=== PATIENT | male | born 1960 | race Caucasian/White ===

== ENCOUNTER 2017-01-03 20:16 | Emergency (ER) | payer OTHER ==
[~2017-01-03] VITALS: Ht 172.7 cm; Wt 86.2 kg
[2017-01-03] MEDS ORDERED: PRAZ1CAP PO (20:30)
[2017-01-03] MEDS ORDERED: POLYSPORIN TOPICAL OINTMENT 15GM As Ordered ONE (22:48)
--- NOTE | 2017-01-03 23:50 | REPUSA ---
CT of the cervical spine Clinical history: Trauma. Technique: Multiple axial CT images were obtained through the cervical spine without administration o f contrast. Coronal and sagittal 3-D reconstructed images were also obtained. Comparison: None. Findings: The cervical vertebral bodies are in satisfactory positioning and alignment. No fractures or dislocat ions are demonstrated. The odontoid process is intact. Intervertebral disc spaces are . Moderately na rrowed at C3/C4, C5/C6, and C6/C7. Small disc osteophyte complexes are noted at each of these levels. This causes mild bilateral neural foraminal narrowing. There is no evidence of facet subluxation. Mo derate facet arthropathy is noted, worse on the left, with prominent osteophytes.The cervical cranial junction is intact. The cervical spinal canal demonstrates normal caliber and contour without eviden ce of spinal stenosis. The surrounding soft tissues are within normal limits. Impression: 1. No acute fracture or traumatic injury. 2. Degenerative disc disease with disc osteophyte complexes at C3/C4, C5/C6, and C6/C7. Mild bilater al neural foraminal narrowing is noted at each of these levels. 3. Mild bilateral facet arthropathy, worse on the left.
[2017-01-03 23:59] VITALS: BP 172/91
[2017-01-04] MEDS ORDERED: VALI5TAB PO (00:10)
[2017-01-04] MEDS ORDERED: NAPR500T PO (00:10)
[2017-01-04] MEDS ORDERED: diazePAM 5 MG TAB PO ONE (00:15)
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
== END 2017-01-04 00:18 | disposition home or self-care (01) ==
LOC: M ED 22:19
DX: S80.812A Abrasion, left lower leg, initial encounter (principal); S93.401A Sprain of unspecified ligament of right ankle, initial encounter; V27.0XXA Motorcycle driver injured in collision with fixed or stationary object in nontraffic accident, initial encounter; Y92.410 Unspecified street and highway as the place of occurrence of the external cause; Y93.89 Activity, other specified; Y99.9 Unspecified external cause status; M50.023 Cervical disc disorder at C6-C7 level with myelopathy

== ENCOUNTER → 2017-07-06 | Outpatient (CLI) | payer OTHER ==
[~2017-07-06] MED LIST: NAPR500T PO; PRAZ1CAP PO; VALI5TAB PO
[2017-07-07 14:10] LABS: PSA TOTAL 3.1 ng/mL (0.0-4.0)
== END ==
LOC: M SMT 10:45
PROVIDERS: ATTEND Urology
DX: R97.20 Elevated prostate specific antigen [PSA] (principal)
CPT/HCPCS: 36415; 51798; 81001; 84154; 87086; G0463

== ENCOUNTER → 2017-08-01 | Day surgery (SDC) | payer OTHER ==
[~2017-08-01] VITALS: Ht 172.7 cm; Wt 87.1 kg
[~2017-08-01] MED LIST changes: +NS 1,000 ML IV ONE; +PROPOFOL 200 MG/20 ML VIAL As Ordered ONE
--- NOTE | 2017-08-01 10:51 | ROOR ---
Patient Name: Satya Plata Procedure Date: 08/01/2017 10:29 AM Date of : 1960 Age: 56 Room: [facility] Gender: Male Note Status: Finalized Procedure: Colonoscopy Indications: Screening for colorectal malignant neoplasm Providers: DO Gino Kang MD: EDEL HOLLINGSWORTH MD Requesting Provider: Medicines: Propofol per Anesthesia Complications: No immediate complications. Procedure: Pre-Anesthesia Assessment: - Prior to the procedure, a History and Physical was performed, and patient medications and allergies were reviewed. The patient is competent. The risks and benefits of the procedure and the sedation options and risks were discussed with the patient. All questions were answered and informed consent was obtained. Patient identification and proposed procedure were verified by the physician, the nurse, the anesthesiologist and the identification technician in the endoscopy suite. Mental Status Examination: alert and oriented. Airway Examination: normal oropharyngeal airway and neck mobility. Respiratory Examination: clear to auscultation. CV Examination: normal. Prophylactic Antibiotics: The patient does not require prophylactic antibiotics. Prior Anticoagulants: The patient has taken no previous anticoagulant or antiplatelet agents. ASA Grade Assessment: II - A patient with mild systemic disease. After reviewing the risks and benefits, the patient was deemed in satisfactory condition to undergo the procedure. The anesthesia plan was to use monitored anesthesia care (MAC). Immediately prior to administration of medications, the patient was re-assessed for adequacy to receive sedatives. The heart rate, respiratory rate, oxygen saturations, blood pressure, adequacy of pulmonary ventilation, and response to care were monitored throughout the procedure. The physical status of the patient was re-assessed after the procedure. The Colonoscope was introduced through the anus and advanced to the cecum, identified by appendiceal orifice and ileocecal valve. The colonoscopy was performed without difficulty. The patient tolerated the procedure well. Findings: A less than 5 mm polyp was found in the hepatic flexure. The polyp was hyperplastic. The polyp was removed with a cold biopsy forceps. Resection and retrieval were complete. Estimated blood loss was minimal. Two semi-pedunculated polyps were found in the sigmoid colon and transverse colon. The polyps were 5 to 8 mm in size. These polyps were removed with a hot snare. Resection and retrieval were complete. Estimated blood loss was minimal. The exam was otherwise without abnormality on direct and retroflexion views. Impression: - One less than 5 mm polyp at the hepatic flexure, removed with a cold biopsy forceps. Resected and retrieved. - Two 5 to 8 mm polyps in the sigmoid colon and in the transverse colon, removed with a hot snare. Resected and retrieved. - The examination was otherwise normal on direct and retroflexion views. Recommendation: - Patient has a contact number available for emergencies. The signs and symptoms of potential delayed complications were discussed with the patient. Return to normal activities tomorrow. Written discharge instructions were provided to the patient. - Repeat colonoscopy in 5-10 years for surveillance based on pathology results. - Telephone my office for pathology results in 1 week. - Return to my office PRN. Joe Sun DO 08/01/2017 10:51:08 AM This report has been signed electronically. Number of Addenda: 0 Note Initiated On: 08/01/2017 10:29 AM Estimated Blood Loss: Estimated blood loss was minimal.
[2017-08-01 11:20] VITALS: BP 157/92
== END | disposition home or self-care (01) ==
LOC: M OPP 09:30
PROVIDERS: ATTEND Surgery
DX: Z12.11 Encounter for screening for malignant neoplasm of colon (principal); D12.3 Benign neoplasm of transverse colon; D12.5 Benign neoplasm of sigmoid colon; I10 Essential (primary) hypertension; E78.5 Hyperlipidemia, unspecified; R12 Heartburn; K21.9 Gastro-esophageal reflux disease without esophagitis; G47.8 Other sleep disorders; R06.83 Snoring; Z80.8 Family history of malignant neoplasm of other organs or systems; Z80.49 Family history of malignant neoplasm of other genital organs

== ENCOUNTER → 2020-02-14 | Outpatient (CLI) | payer OTHER ==
[~2020-02-14] MED LIST changes: +NAPR-837 PO; -NAPR500T PO; -NS 1,000 ML IV ONE; -PROPOFOL 200 MG/20 ML VIAL As Ordered ONE
--- NOTE | 2020-02-16 20:22 | ECGEPIP ---
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
== END ==
LOC: M EKG 11:15
PROVIDERS: ATTEND Anesthesiology
DX: I10 Essential (primary) hypertension (principal)

== ENCOUNTER 2020-02-16 09:01 | Day surgery (SDC) | payer OTHER ==
[~2020-02-16] VITALS: Ht 172.7 cm; Wt 86.1 kg
[~2020-02-16 09:01] MED LIST changes: +LR 1,000 ML IV ONE; +ceFAZolin SOD 2 GM in IV 1 EA IV ONE
[2020-02-16] MEDS ORDERED: BUPIVACAINE/EPIN 0.25% 30 ML VIAL As Ordered ONE (11:59)
[2020-02-16] MEDS ORDERED: LIDOCAINE 2% 100MG/5ML SDV (FOR ANES.) As Ordered ONE (12:43)
[2020-02-16] MEDS ORDERED: KETOROLAC 60MG 2ML VIAL As Ordered ONE (12:43)
[2020-02-16] MEDS ORDERED: fentaNYL 250 MCG/5 ML INJECTION (J3010) As Ordered ONE (12:43)
[2020-02-16] MEDS ORDERED: MIDAZOLAM INJ 2MG/2ML VIAL (J2250 PER 1MG) As Ordered ONE (12:43)
[2020-02-16] MEDS ORDERED: ROCURONIUM BROMIDE 50 MG/5 ML VIAL As Ordered ONE (12:43)
[2020-02-16] MEDS ORDERED: propofoL 200 MG/20 ML VIAL As Ordered ONE (12:43)
[2020-02-16] MEDS ORDERED: dexameTHASONE 4 MG/ML 1ML VIAL (J1100 PER 1MG) As Ordered ONE (12:43)
[2020-02-16] MEDS ORDERED: ONDANSETRON 4MG/2ML VIAL As Ordered ONE (12:43)
[2020-02-16] MEDS ORDERED: SUGAMMADEX SODIUM 500 MG/5 ML VIAL (BRIDION) As Ordered ONE (12:43)
[2020-02-16] MEDS ORDERED: NORCO, ANEXSIA 5/325MG TABLET (HYDROcodone/ACETAMINOPHEN) PO PRN (14:15)
[2020-02-16] MEDS ORDERED: ONDANSETRON 4MG/2ML VIAL IV PRN (14:15)
[2020-02-16] MEDS ORDERED: LR 1,000 ML IV SCH (14:15)
[2020-02-16] MEDS ORDERED: fentaNYL 100 MCG/2 ML INJECTION (J3010) IV PRN (14:15)
[2020-02-16] MEDS ORDERED: oxyCODONE 5MG TAB PO PRN (14:15)
[2020-02-16 15:25] VITALS: BP 119/73
--- NOTE | 2020-02-18 14:31 | RO ---
DATE OF PROCEDURE: 02/16/2020 PREOPERATIVE DIAGNOSIS: Right inguinal hernia. POSTOPERATIVE DIAGNOSIS: Right inguinal hernia. PROCEDURE: Robotic right inguinal hernia repair. SURGEON: Joe Sun DO ASSIST: None. ANESTHESIA: General. ESTIMATED BLOOD LOSS: 5. COMPLICATION: None. INDICATIONS FOR PROCEDURE: The patient is a 59-year-old male who presents with right groin pain, found to have a large right inguinal hernia. Recommendation was to proceed with robotic repair. Risks and benefits of the procedure not limited but including bleeding, infection, hernia formation, hernia recurrence, damage to surrounding structures, need for further surgery discussed in detail with the patient. Informed consent was obtained, and procedure was planned. DESCRIPTION OF PROCEDURE: The patient brought to operating room #7 after sufficient sedation. The abdomen was sterilely prepped and draped. Next, time-out was done to confirm proper patient and proper procedure. Following that, an 8-mm incision made in left lower quadrant. Veress needle was inserted, and the abdomen was insufflated to 15 mmHg. Veress needle was then removed, and an 8-mm Optiview robotic port was used to gain access to the abdomen. Once the abdomen was entered, two more robotic ports were placed. One supraumbilically just off midline and one in the right upper quadrant. The robot was then docked to the ports. Next, from the console, the right groin was examined. There was an obvious large direct defect. The peritoneum was then opened up superior and lateral to this, and the preperitoneal space was dissected free medially and laterally. The direct defect was then carefully dissected completely and completely reduced. Once that was completed, the cord structures were identified. There was a large direct cord lipoma going through a large defect there, as well. This large lipoma was carefully dissected free and brought out of the preperitoneal space. Once this was completed, a 2-0 V-Loc suture was used to reapproximate the direct defect from the inguinal ligament superiorly. I closed the defect approximately 80% of the way. Once that was completed, a Bard 3DMax light medium-size mesh was placed in the preperitoneal space, sutured to the pubic symphysis with a 2-0 Vicryl suture. It was laid flat inside of the pocket with the cord lipoma outside of the mesh. The incision into the peritoneum was then closed with a running 2-0 V-Loc encompassing the large lipoma into the closure to help prevent it from retracting and going back down into the inguinal canal. Once this was all completed, the abdomen was desufflated. Skin incisions were closed with 4-0 Vicryl subcuticular sutures. The abdomen was cleaned and dried. Steri-Strips, 4x4, and tape were applied, thus ending the procedure. MORRO
== END 2020-02-16 15:35 | disposition home or self-care (01) ==
LOC: M SDC 09:01
PROVIDERS: ATTEND Surgery
DX: K40.90 Unilateral inguinal hernia, without obstruction or gangrene, not specified as recurrent (principal); I10 Essential (primary) hypertension; E78.00 Pure hypercholesterolemia, unspecified; K21.9 Gastro-esophageal reflux disease without esophagitis; N40.0 Benign prostatic hyperplasia without lower urinary tract symptoms
CPT/HCPCS: 49650; C1781; J0690; J1100; J1885; J2250; J2405; J3010

== ENCOUNTER → 2022-09-04 | Outpatient (CLI) | payer OTHER ==
[~2022-09-04] MED LIST changes: -LR 1,000 ML IV ONE; -ceFAZolin SOD 2 GM in IV 1 EA IV ONE
== END ==
LOC: M PLAIMG 06:40
PROVIDERS: ATTEND Family Medicine
DX: M54.50 Low back pain, unspecified (principal)

== ENCOUNTER → 2023-06-14 | Outpatient (REF) | payer OTHER | LOC: M LAB REF 15:10 | PROVIDERS: ATTEND Nurse Practitioner Family | DX: R19.7 Diarrhea, unspecified (principal) ==

== ENCOUNTER 2023-06-26 07:36 | Day surgery (SDC) | payer OTHER ==
[~2023-06-26] VITALS: Ht 172.7 cm; Wt 76.2 kg
[~2023-06-26 07:36] MED LIST changes: +ATOR1TAB21 PO; +BUPR-71 PO; +NS 1,000 ML IV ONE; +TRAZ-257 PO; +ZOLO100T PO
[2023-06-26] MEDS ORDERED: fentaNYL 100 MCG/2 ML INJECTION As Ordered ONE (08:58)
[2023-06-26] MEDS ORDERED: LIDOCAINE 2% 100MG/5ML SDV (FOR ANES.) As Ordered ONE (09:03)
[2023-06-26] MEDS ORDERED: propofoL 200 MG/20 ML VIAL As Ordered ONE (09:03)
[2023-06-26 10:13] VITALS: BP 146/74; O2SAT 99
== END 2023-06-26 10:18 | disposition home or self-care (01) ==
LOC: M OPP 07:36
PROVIDERS: ATTEND Internal Medicine Gastroenterology
DX: K64.8 Other hemorrhoids (principal); D12.8 Benign neoplasm of rectum; Z79.899 Other long term (current) drug therapy; I10 Essential (primary) hypertension; E78.5 Hyperlipidemia, unspecified; K21.00 Gastro-esophageal reflux disease with esophagitis, without bleeding; K44.9 Diaphragmatic hernia without obstruction or gangrene; K29.70 Gastritis, unspecified, without bleeding; R13.10 Dysphagia, unspecified; R12 Heartburn; F41.9 Anxiety disorder, unspecified; F32.A Depression, unspecified; Z86.010 Personal history of colon polyps; Z85.46 Personal history of malignant neoplasm of prostate
CPT/HCPCS: 43239; 45385; 88305; J3010

== ENCOUNTER → 2023-08-22 | Outpatient (CLI) | payer OTHER ==
[~2023-08-22] MED LIST changes: -NS 1,000 ML IV ONE; +PROHANCE 279.3MG/ML 15ML VIAL ONE
== END ==
LOC: M PLAIMG 10:44
PROVIDERS: ATTEND Nurse Practitioner Family
DX: K86.81 Exocrine pancreatic insufficiency (principal); D18.03 Hemangioma of intra-abdominal structures; K76.89 Other specified diseases of liver; N28.1 Cyst of kidney, acquired
CPT/HCPCS: 74183; A9576

== ENCOUNTER → 2024-03-13 | Outpatient (CLI) | payer OTHER | LOC: M PLAIMG 07:31 | PROVIDERS: ATTEND Urology | DX: C61 Malignant neoplasm of prostate (principal) | CPT/HCPCS: 72197; A9576 ==